=== PATIENT | female | born 1980 | race Caucasian/White ===

== ENCOUNTER 2019-09-07 12:57 | Emergency (ER) | payer OTHER ==
--- NOTE | 2019-09-07 13:54 | ED ---
Psych HPI <Sher Gomez - Last Filed: 09/07/19 15:34> - General Source: patient, EMS, RN notes reviewed Mode of arrival: EMS Limitations: no limitations <Samy Watts - Last Filed: 09/07/19 15:41> - General Chief Complaint: Psychiatric Symptoms Stated Complaint: mental health Time Seen by Provider: 09/07/19 12:58 - History of Present Illness Initial Comments: This a 39-year-old female presents emergency department via EMS for psychiatric evaluation. Patient reportedly was at [facility] trying to be admitted though she was denied. At this time patient's significant other stated that she was suicidal. Patient denies being suicidal Denies being homicidal. She does admit that she takes benzodiazepines but she has prescription for this. Patient denies other illicit drug use. Patient denies any physical complaints. Patient states she is hungry. Patient states that her boyfriend recent overdosed on heroin. (Samy Watts) Review of Systems ROS Other: All systems not noted in ROS Statement are negative. <Sher Gomez - Last Filed: 09/07/19 15:34> ROS Other: All systems not noted in ROS Statement are negative. <Samy Watts - Last Filed: 09/07/19 15:41> ROS Statement: Those systems with pertinent positive or pertinent negative responses have been documented in the HPI. Past Medical History Past Medical History: No Reported History Additional Past Medical History / Comment(s): Hepatitis C History of Any Multi-Drug Resistant Organisms: None Reported Past Surgical History: No Surgical Hx Reported Past Psychological History: Anxiety Smoking Status: Current every day smoker Past Alcohol Use History: None Reported Past Drug Use History: Heroin, Opiates <Samy Watts - Last Filed: 09/07/19 15:41> General Exam Limitations: no limitations General appearance: alert, in no apparent distress Head exam: Present: atraumatic, normocephalic, normal inspection Eye exam: Present: normal appearance, PERRL, EOMI. Absent: scleral icterus, conjunctival injection, periorbital swelling ENT exam: Present: normal exam, normal oropharynx, mucous membranes moist Neck exam: Present: normal inspection, full ROM. Absent: tenderness, meningism us, lymphadenopathy Respiratory exam: Present: normal lung sounds bilaterally. Absent: respiratory distress, wheezes, rales, rhonchi, stridor Cardiovascular Exam: Present: regular rate, normal rhythm, normal heart sounds. Absent: systolic murmur, diastolic murmur, rubs, gallop, clicks GI/Abdominal exam: Present: soft, normal bowel sounds. Absent: distended, tenderness, guarding, rebound, rigid External exam: Present: normal external exam, other (Performed with ER nurse Bertha) Speculum exam: Present: normal speculum exam Back exam: Absent: CVA tenderness (R), CVA tenderness (L) Neurological exam: Present: alert Skin exam: Present: warm, dry, intact, normal color. Absent: rash <Samy Watts - Last Filed: 09/07/19 15:41> Course <Samy Watts - Last Filed: 09/07/19 15:41> Vital Signs 09/07/19 13:00 Pulse Rate 64 Respiratory 16 Rate Blood Pressure 136/90 O2 Sat by Pulse 99 Oximetry - Reevaluation(s) Reevaluation #1: 09/07/19 15:06 I was approached by ER psychiatric nurse Who Stated That She Had Reports That the Patient Had Drugs in Her Vaginal Cavity. She Has Done This in the past. I Did Go in the Room and Addresses with the Patient with ER Nurse Bertha and Psychiatric Nurse Josi Gave Verbal Consent for Exam. This Was Done with the ER Nurse. (Samy Watts) Medical Decision Making <Sher Gomez - Last Filed: 09/07/19 15:34> - Medical Decision Making Patient reevaluated by myself, Dr. Gomez. Patient resting comfortably in bed. Patient is easily arousable. Patient admits to feeling more anxious lately. Patient's history however is otherwise inconsistent. Patient states she has been taking her medications. Patient denies suicidal or homicidal thoughts. Positive clinical certificate completed. (Sher Gomez) - Lab Data Lab Results 09/07/19 09/07/19 Range/Units Unknown Unknown Urine HCG, Qual Not Detected (Not Detectd) Urine Opiates Screen Detected H (NotDetected) Ur Oxycodone Screen Not Detected (NotDetected) Urine Methadone Screen Not Detected (NotDetected) Ur Propoxyphene Screen Not Detected (NotDetected) Ur Barbiturates Screen Not Detected (NotDetected) U Tricyclic Antidepress Not Detected (NotDetected) Ur Phencyclidine Scrn Not Detected (NotDetected) Ur Amphetamines Screen Not Detected (NotDetected) U Methamphetamines Scrn Not Detected (NotDetected) U Benzodiazepines Scrn Detected H (NotDetected) Urine Cocaine Screen Detected H (NotDetected) U Marijuana (THC) Screen Detected H (NotDetected) Disposition <Sher Gomez - Last Filed: 09/07/19 15:34> <Samy Watts - Last Filed: 09/07/19 15:41> Clinical Impression: Depression, Acute anxiety Disposition: TRANSFER TO PSYCH HOSP/UNIT Condition: Stable Referrals: Roldan Mosley DO [Primary Care Provider] - 1-2 days
[2019-09-07 14:22] LABS: Cocaine Screen,Urine Detected (NotDetected); Phencyclidine Screen,Urine Not Detected (NotDetected); Urn Cannabinoid Scrn Detected (NotDetected)
[2019-09-07 14:23] LABS: Amphetamine Screen,Urine Not Detected (NotDetected); Barbiturate Screen,Urine Not Detected (NotDetected); Benzodiazepines Screen,Urine Detected (NotDetected); Methadone Screen, Urine Not Detected (NotDetected); Opiate Screen,Urine Detected (NotDetected); Oxycodone Screen, Urine Not Detected (NotDetected); Tricyclic Antidepressant,Urine Not Detected (NotDetected)
[2019-09-07 18:59] LABS: ALT 77 U/L (4-34); AST 72 U/L (14-36); African American GFR (CKD) >90 (>60 ml/min/1.73 sqM); Albumin 3.8 g/dL (3.5-5.0); Alkaline Phosphatase 72 U/L (38-126); Anion Gap 6 mmol/L; Blood Urea Nitrogen 16 mg/dL (7-17); Calcium 9.3 mg/dL (8.4-10.2); Carbon Dioxide 30 mmol/L (22-30); Chloride 102 mmol/L (98-107); Glucose 89 mg/dL (74-99); Non-African American GFR(CKD) >90 (>60 ml/min/1.73 sqM); Potassium 4.1 mmol/L (3.5-5.1); Sodium 138 mmol/L (137-145); Total Bilirubin 0.4 mg/dL (0.2-1.3); Total Protein 6.6 g/dL (6.3-8.2)
[2019-09-07 19:19] LABS: Basophils % (A) 0 %; Eosinophils # (A) 0.2 k/uL (0-0.7); Eosinophils % (A) 2 %; HCT 43.7 % (34.0-46.0); HGB 14.9 gm/dL (11.4-16.0); Lymphocytes # (A) 1.7 k/uL (1.0-4.8); Lymphocytes % (A) 27 %; MCH 31.7 pg (25.0-35.0); MCHC 34.2 g/dL (31.0-37.0); MCV 92.9 fL (80.0-100.0); Mean Platelet Volume 7.9; Monocytes # (A) 0.4 k/uL (0-1.0); Monocytes % (A) 6 %; Neutrophils # (A) 3.8 k/uL (1.3-7.7); Neutrophils % (A) 61 %; Platelet Count 233 k/uL (150-450); RBC 4.71 m/uL (3.80-5.40); RDW 12.6 % (11.5-15.5); WBC 6.3 k/uL (3.8-10.6)
[2019-09-07] MEDS ORDERED: LORazepam 1 MG TAB PO STA (22:34)
[2019-09-08] MEDS ORDERED: LORazepam 1 MG TAB PO STA ×3 (05:30→21:22)
[2019-09-08] MEDS ORDERED: ZIPRASIDONE 20 MG VIAL IM STA (06:40)
[2019-09-08] MEDS ORDERED: ONDANSETRON ODT 4 MG TAB PO STA (07:46)
[2019-09-08] MEDS ORDERED: diphenhydrAMINE 50 MG/ML 1 ML VIAL IM STA (09:03)
[2019-09-08] MEDS ORDERED: LORazepam 2 MG/ML INJ IM STA (10:31)
[2019-09-09] MEDS ORDERED: LORazepam 1 MG TAB PO STA ×4 (04:07→22:15)
[2019-09-09] MEDS ORDERED: ONDANSETRON ODT 4 MG TAB PO STA (12:48)
[2019-09-09] MEDS ORDERED: NICOTINE 21MG/24HR PATCH TRANSDERM STA (15:27)
[2019-09-09] MEDS ORDERED: MELATONIN 3 MG TABLET PO STA (17:49)
[2019-09-09] MEDS ORDERED: ACETAMINOPHEN TAB 500 MG TAB PO STA (20:59)
[2019-09-10] MEDS ORDERED: LORazepam 1 MG TAB PO STA ×2 (01:41→08:53)
--- NOTE | 2019-09-10 14:14 | P.PN ---
Progress Note - Text Progress Note Date: 09/10/19 Psychiatric progress note: Interval history: Patient was seen today for psychiatric follow-up in the ER. Patient was currently on a petition and certification where the petition was filled out by her boyfriend after patient made suicidal remarks and patient has been in the ER since 09/07/2019. Patient was agreeable to be seen at the bedside and appeared to be directable and fairly appropriate during interview. She states that she is "sick of using drugs" and stated that she drove one hour to get to [facility] "only to be rejected" as she was trying to get into rehab. She states that there were only allowing residents into rehab at that time and was denied. She states that she mistakenly got upset and has a police called on her. She claims that she was irritable at that time as she was withdrawing from heroin. She states that she is looking forward to getting into rehab and claims that she had her packet sent to [facility] rehab In [facility] and stated that her boyfriend will drive her there. She states that she has her son to care for and to live for as well and also her sobriety. She claims that she is not irritable or not depressed any longer and states that she is feeling "better now that I'm done withdrawing". She admits to mild anxiety. At this time patient denies any suicidal or homicidal ideations intent or plan. Denies any Auditory or visual hallucinations. Mental status exam: General Appearance: [Patient appears to be stated age is alert, directable, and attempts to be cooperative.] Poor hygiene and grooming. Behavior: [No agitated behavior. Patient is directable in conversation] Speech: Patient's speech is fluent and nonpressured. Mood/Affect: Mood is "better", affect is congruent Suicidality/Homicidality: Patient denies having any suicidal or homicidal ideation intent or plan. Perceptions: Patient denies any auditory or visual hallucinations. 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 It is likely that patient's initial behavior were secondary to drug use/withdrawal and patient is currently not suicidal homicidal and not exhibiting any psychotic symptoms. Patient is agreeable to go to substance abuse rehab inpatient in [facility] at this time and EPS nurse will help with providing details on where she can go and resources to give to patient. EPS nurse will also contact patient's boyfriend to see if he has any concerns about her discharge and if he is going to pick her up at this point and look after until she goes to rehab. Patient clinical certification will at 3:20 PM today and does not need to be renewed at this time and patient may be discharged.
--- NOTE | 2019-09-10 15:03 | ED ---
Medical Decision Making - Lab Data Result diagrams: 09/07/19 18:40 09/07/19 18:40 Lab Results 09/07/19 09/07/19 09/07/19 Range/Units 18:40 18:40 Unknown WBC 6.3 (3.8-10.6) k/uL RBC 4.71 (3.80-5.40) m/uL Hgb 14.9 (11.4-16.0) gm/dL Hct 43.7 (34.0-46.0) % MCV 92.9 (80.0-100.0) fL MCH 31.7 (25.0-35.0) pg MCHC 34.2 (31.0-37.0) g/dL RDW 12.6 (11.5-15.5) % Plt Count 233 (150-450) k/uL Neutrophils % 61 % Lymphocytes % 27 % Monocytes % 6 % Eosinophils % 2 % Basophils % 0 % Neutrophils # 3.8 (1.3-7.7) k/uL Lymphocytes # 1.7 (1.0-4.8) k/uL Monocytes # 0.4 (0-1.0) k/uL Eosinophils # 0.2 (0-0.7) k/uL Basophils # 0.0 (0-0.2) k/uL Sodium 138 (137-145) mmol/L Potassium 4.1 (3.5-5.1) mmol/L Chloride 102 (98-107) mmol/L Carbon Dioxide 30 (22-30) mmol/L Anion Gap 6 mmol/L BUN 16 (7-17) mg/dL Creatinine 0.73 (0.52-1.04) mg/dL Est GFR (CKD-EPI)AfAm >90 (>60 ml/min/1.73 sqM) Est GFR (CKD-EPI)NonAf >90 (>60 ml/min/1.73 sqM) Glucose 89 (74-99) mg/dL Calcium 9.3 (8.4-10.2) mg/dL Total Bilirubin 0.4 (0.2-1.3) mg/dL AST 72 H (14-36) U/L ALT 77 H (4-34) U/L Alkaline Phosphatase 72 (38-126) U/L Total Protein 6.6 (6.3-8.2) g/dL Albumin 3.8 (3.5-5.0) g/dL Urine HCG, Qual (Not Detectd) Urine Opiates Screen Detected H (NotDetected) Ur Oxycodone Screen Not Detected (NotDetected) Urine Methadone Screen Not Detected (NotDetected) Ur Propoxyphene Screen Not Detected (NotDetected) Ur Barbiturates Screen Not Detected (NotDetected) U Tricyclic Antidepress Not Detected (NotDetected) Ur Phencyclidine Scrn Not Detected (NotDetected) Ur Amphetamines Screen Not Detected (NotDetected) U Methamphetamines Scrn Not Detected (NotDetected) U Benzodiazepines Scrn Detected H (NotDetected) Urine Cocaine Screen Detected H (NotDetected) U Marijuana (THC) Screen Detected H (NotDetected) 09/07/19 Range/Units Unknown WBC (3.8-10.6) k/uL RBC (3.80-5.40) m/uL Hgb (11.4-16.0) gm/dL Hct (34.0-46.0) % MCV (80.0-100.0) fL MCH (25.0-35.0) pg MCHC (31.0-37.0) g/dL RDW (11.5-15.5) % Plt Count (150-450) k/uL Neutrophils % % Lymphocytes % % Monocytes % % Eosinophils % % Basophils % % Neutrophils # (1.3-7.7) k/uL Lymphocytes # (1.0-4.8) k/uL Monocytes # (0-1.0) k/uL Eosinophils # (0-0.7) k/uL Basophils # (0-0.2) k/uL Sodium (137-145) mmol/L Potassium (3.5-5.1) mmol/L Chloride (98-107) mmol/L Carbon Dioxide (22-30) mmol/L Anion Gap mmol/L BUN (7-17) mg/dL Creatinine (0.52-1.04) mg/dL Est GFR (CKD-EPI)AfAm (>60 ml/min/1.73 sqM) Est GFR (CKD-EPI)NonAf (>60 ml/min/1.73 sqM) Glucose (74-99) mg/dL Calcium (8.4-10.2) mg/dL Total Bilirubin (0.2-1.3) mg/dL AST (14-36) U/L ALT (4-34) U/L Alkaline Phosphatase (38-126) U/L Total Protein (6.3-8.2) g/dL Albumin (3.5-5.0) g/dL Urine HCG, Qual Not Detected (Not Detectd) Urine Opiates Screen (NotDetected) Ur Oxycodone Screen (NotDetected) Urine Methadone Screen (NotDetected) Ur Propoxyphene Screen (NotDetected) Ur Barbiturates Screen (NotDetected) U Tricyclic Antidepress (NotDetected) Ur Phencyclidine Scrn (NotDetected) Ur Amphetamines Screen (NotDetected) U Methamphetamines Scrn (NotDetected) U Benzodiazepines Scrn (NotDetected) Urine Cocaine Screen (NotDetected) U Marijuana (THC) Screen (NotDetected) Disposition Clinical Impression: Depression, Acute anxiety Disposition: TRANSFER TO PSYCH HOSP/UNIT Condition: Stable Instructions (If sedation given, give patient instructions): Anxiety (ED) Referrals: Roldan Mosley DO [Primary Care Provider] - 1-2 days
[2019-09-10 15:28] VITALS: RESP 18; TEMP 98
[2019-09-10 16:07] VITALS: BP 118/82; PULSE 78
== END 2019-09-10 16:07 ==
LOC: EC 12:57
DX: F32.9 Major depressive disorder, single episode, unspecified (principal); F41.9 Anxiety disorder, unspecified; F11.10 Opioid abuse, uncomplicated; F17.200 Nicotine dependence, unspecified, uncomplicated
CPT/HCPCS: 82075; 36415; 80053; 85025; 81025; 80306; 99285; 96372 ×3; J2060; J1200; J3486